=== PATIENT | female | born 1990 | race Caucasian/White ===

== ENCOUNTER 2018-01-31 08:58 | Observation (INO) | payer OTHER ==
[~2018-01-31] VITALS: Ht 165 cm; Wt 70.8 kg
[2018-01-31 09:19] VITALS: BP 110/75
== END 2018-01-31 10:45 | disposition home or self-care (01) ==
LOC: 4S 08:58
PROVIDERS: ADMIT Obstetrics & Gynecology; ATTEND Obstetrics & Gynecology
DX: O62.9 Abnormality of forces of labor, unspecified (principal); Z3A.38 38 weeks gestation of pregnancy
CPT/HCPCS: 59025; 76805

== ENCOUNTER 2018-02-08 21:18 | Inpatient (IN) | payer OTHER ==
[~2018-02-08] VITALS: Ht 165.1 cm; Wt 71.7 kg
[2018-02-08 21:52] VITALS: BP 122/77
[2018-02-08] MEDS ORDERED: RINGERS SOLUTION,LACTATED 1,000 ML IV ONE (22:07)
[2018-02-08] MEDS ORDERED: OXYTOCIN 30 UNITS/LACT RINGERS 500 ML IV ONE ×2 (22:07→23:47)
[2018-02-08] MEDS ORDERED: RINGERS SOLUTION,LACTATED 1,000 ML IV SCH (22:07)
[2018-02-08] MEDS ORDERED: LIDOCAINE HCL/PF 1% 30 ML VIAL INJ PRN (22:15)
[2018-02-08] MEDS ORDERED: CITRIC ACID/SODIUM CITRATE 30 ML SOLUTION UDCUP PO PRN (22:15)
[2018-02-08] MEDS ORDERED: METOCLOPRAMIDE HCL 5 MG/ML 2 ML VIAL IVP PRN (22:15)
[2018-02-08] MEDS ORDERED: ROPIVACAINE HCL/PF 0.2% 0 ML ED ONE (22:17)
[2018-02-08] MEDS ORDERED: LIDOCAINE HCL/PF 2% 5 ML VIAL ONE (22:17)
[2018-02-08] MEDS ORDERED: BUPIVACAINE HCL/PF 0.5% 10 ML VIAL ONE (22:20)
[2018-02-08] MEDS ORDERED: PREN1TAB80 PO (23:42)
[2018-02-08] MEDS ORDERED: FERR325T22 PO (23:43)
[2018-02-08] MEDS ORDERED: FOLI1TAB15 PO (23:43)
[2018-02-08 23:47] LABS: BASOPHILS % (AUTO) 0.8 % (0.0-2.0); EOSINOPHILS % (AUTO) 1.1 % (1.0-6.0); HEMATOCRIT 34.8 % (36-46); HEMOGLOBIN 12.1 g/dL (12.0-16.0); LYMPHOCYTES # (AUTO) 1.7 K/uL (1.0-4.8); LYMPHOCYTES % (AUTO) 18.5 % (22.0-44.0); MEAN CORPUSCULAR HEMOGLOBIN 33.2 pg (26.0-34.0); MEAN CORPUSCULAR HGB CONC 34.7 G/dL (31.0-37.0); MEAN CORPUSCULAR VOLUME 96 fL (80-100); MONOCYTES # (AUTO) 0.7 K/uL (0.1-1.0); MONOCYTES % (AUTO) 7.9 % (2.0-9.0); NEUTROPHILS # (AUTO) 6.6 K/uL (1.8-7.7); NEUTROPHILS % (AUTO) 71.7 % (40.0-70.0); PLATELET COUNT (AUTO)-OB 244 K/uL (150-450); RED BLOOD CELL COUNT(AUTO) 3.64 MIL/uL (4.00-5.20); RED CELL DISTRIBUTION WIDTH 13.8 % (11.5-14.5)
[2018-02-09] MEDS ORDERED: OxyCODONE HCL/ACETAMINOPHEN 5-325 MG TABLET PO PRN ×2
[2018-02-09] MEDS ORDERED: BENZOCAINE 20%/MENTHOL 56 GM SPRAY CANISTER TP PRN
[2018-02-09] MEDS ORDERED: GLYCERIN/WITCH HAZEL LEAF 40 PADS JAR TP PRN
[2018-02-09] MEDS ORDERED: LANOLIN 7 GM OINTMENT TP PRN
[2018-02-09] MEDS ORDERED: LIDOCAINE HCL/PF 1% 30 ML VIAL INJ PRN
[2018-02-09] MEDS: IBUPROFEN 800 MG TABLET PO PRN (00:33)
[2018-02-09 06:36] LABS: BASOPHILS % (AUTO) 0.3 % (0.0-2.0); EOSINOPHILS % (AUTO) 0.6 % (1.0-6.0); HEMATOCRIT 34.5 % (36-46); LYMPHOCYTES # (AUTO) 1.8 K/uL (1.0-4.8); LYMPHOCYTES % (AUTO) 15.3 % (22.0-44.0); MEAN CORPUSCULAR HEMOGLOBIN 33.6 pg (26.0-34.0); MEAN CORPUSCULAR HGB CONC 34.8 G/dL (31.0-37.0); MEAN CORPUSCULAR VOLUME 97 fL (80-100); MONOCYTES # (AUTO) 0.9 K/uL (0.1-1.0); MONOCYTES % (AUTO) 7.9 % (2.0-9.0); NEUTROPHILS # (AUTO) 8.9 K/uL (1.8-7.7); NEUTROPHILS % (AUTO) 75.9 % (40.0-70.0); PLATELET COUNT (AUTO)-OB 247 K/uL (150-450); RED BLOOD CELL COUNT(AUTO) 3.57 MIL/uL (4.00-5.20); RED CELL DISTRIBUTION WIDTH 14.1 % (11.5-14.5)
[2018-02-09] MEDS: MAGNESIUM HYDROXIDE SUSPENSION 30 ML UDCUP PO PRN (08:55)
[2018-02-10] MEDS: MAGNESIUM HYDROXIDE SUSPENSION 30 ML UDCUP PO PRN (08:24)
[2018-02-10] MEDS: IBUPROFEN 800 MG TABLET PO PRN (08:24)
[2018-02-10] MEDS ORDERED: IBUP-2071 PO (09:45)
[2018-02-10] MEDS ORDERED: DSS100 PO (09:46)
== END 2018-02-10 10:50 | disposition home or self-care (01) | DRG 775 ==
LOC: 4S 21:18 → OBSVTOIN 21:18
PROVIDERS: ADMIT Obstetrics & Gynecology; ATTEND Obstetrics & Gynecology
PROC: 10D07Z6 Extraction of Products of Conception, Vacuum, Via Natural or Artificial Opening (ICD-10-PCS; principal; 2018-02-08)
PROC: 0HQ9XZZ Repair Perineum Skin, External Approach (ICD-10-PCS; 2018-02-08)
PROC: 3E0R3BZ Introduction of Anesthetic Agent into Spinal Canal, Percutaneous Approach (ICD-10-PCS; 2018-02-08)
PROC: 00HU33Z Insertion of Infusion Device into Spinal Canal, Percutaneous Approach (ICD-10-PCS; 2018-02-08)
PROC: 10907ZC Drainage of Amniotic Fluid, Therapeutic from Products of Conception, Via Natural or Artificial Opening (ICD-10-PCS; 2018-02-08)
DX: O76 Abnormality in fetal heart rate and rhythm complicating labor and delivery (principal); O70.0 First degree perineal laceration during delivery; Z3A.39 39 weeks gestation of pregnancy; Z37.0 Single live birth; O66.5 Attempted application of vacuum extractor and forceps
CPT/HCPCS: 86850; 86900; 86901; J2590; J2795; J3490; J7120

== ENCOUNTER 2019-10-15 03:29 | Inpatient (IN) | payer OTHER ==
[~2019-10-15] VITALS: Ht 165.1 cm; Wt 75.3 kg
[~2019-10-15 03:29] MED LIST: DSS100 PO; FOLI1TAB15 PO; IBUP-2071 PO; PREN1TAB80 PO
[2019-10-15] MEDS ORDERED: OXYTOCIN 20 UNITS/LACT RINGERS 1,000 ML IV ONE (03:48)
[2019-10-15] MEDS ORDERED: OXYTOCIN 30 UNITS/LACT RINGERS 500 ML IV ONE (03:50)
[2019-10-15] MEDS ORDERED: CITRIC ACID/SODIUM CITRATE 30 ML SOLUTION UDCUP PO PRN (04:00)
[2019-10-15] MEDS ORDERED: LIDOCAINE/PF 1% 30 ML VIAL INJ PRN (04:00)
[2019-10-15] MEDS ORDERED: TERBUTALINE SULFATE 1 MG/ML VIAL SQ PRN (04:00)
[2019-10-15] MEDS ORDERED: METOCLOPRAMIDE HCL 5 MG/ML 2 ML VIAL IVP PRN (04:00)
[2019-10-15] MEDS ORDERED: FentaNYL CITRATE-PF 100 MCG/2 ML VIAL IVP PRN (04:00)
[2019-10-15 04:11] VITALS: BP 116/72
[2019-10-15] MEDS: RINGERS SOLUTION,LACTATED 1,000 ML IV SCH ×3 (04:41→10:35)
[2019-10-15 04:48] LABS: BASOPHILS % (AUTO) 0.4 % (0.0-2.0); EOSINOPHILS % (AUTO) 1.3 % (1.0-6.0); HEMATOCRIT 38.2 % (36-46); HEMOGLOBIN 12.9 g/dL (12.0-16.0); LYMPHOCYTES # (AUTO) 1.9 K/uL (1.0-4.8); LYMPHOCYTES % (AUTO) 21.7 % (22.0-44.0); MEAN CORPUSCULAR HEMOGLOBIN 32.6 pg (26.0-34.0); MEAN CORPUSCULAR HGB CONC 33.8 G/dL (31.0-37.0); MEAN CORPUSCULAR VOLUME 97 fL (80-100); MONOCYTES # (AUTO) 0.6 K/uL (0.1-1.0); MONOCYTES % (AUTO) 6.9 % (2.0-9.0); NEUTROPHILS % (AUTO) 69.7 % (40.0-70.0); PLATELET COUNT (AUTO) 209 K/uL (150-450); RED BLOOD CELL COUNT(AUTO) 3.95 MIL/uL (4.00-5.20)
[2019-10-15] MEDS ORDERED: INFLUENZA VIRUS VACCINE QVS 2019-20 (3YR+)/PF 60 MCG/0.5 ML SYRINGE IM ONE (05:00)
[2019-10-15] MEDS ORDERED: ROPIVACAINE HCL/PF 0.2% 100 ML ED ONE (05:03)
[2019-10-15] MEDS ORDERED: CARBOPROST TROMETHAMINE 250 MCG/ML AMP IM PRN (08:30)
[2019-10-15] MEDS ORDERED: METHYLERGONOVINE MALEATE 0.2 MG/ML VIAL IM PRN (08:30)
[2019-10-15] MEDS ORDERED: ROPIVACAINE HCL/PF 0.2% 100 ML ED PRN (09:12)
[2019-10-15] MEDS ORDERED: DiphenhydrAMINE HCL 50 MG/ML VIAL IVP PRN (09:15)
[2019-10-15] MEDS ORDERED: ONDANSETRON HCL 4 MG/2 ML VIAL IVP PRN (09:15)
[2019-10-15] MEDS ORDERED: NALBUPHINE HCL 10 MG/ML VIAL IVP PRN (09:15)
[2019-10-15] MEDS ORDERED: OXYTOCIN 30 UNITS/LACT RINGERS 500 ML IV PRN (10:09)
[2019-10-15] MEDS ORDERED: RINGERS SOLUTION,LACTATED 1,000 ML IV ONE (12:10)
[2019-10-15] MEDS ORDERED: OxyCODONE HCL/ACETAMINOPHEN 5-325 MG TABLET PO PRN ×2 (12:15)
[2019-10-15] MEDS ORDERED: MEASLES/MUMPS/RUBELLA VACCINE, LIVE 0.5 ML/VIAL SQ ONE (12:15)
[2019-10-15] MEDS ORDERED: LANOLIN 7 GM OINTMENT TP PRN (12:15)
[2019-10-15] MEDS: GLYCERIN/WITCH HAZEL LEAF 40 PADS JAR TP PRN (12:54)
[2019-10-15] MEDS: BENZOCAINE 20%/MENTHOL 56 GM SPRAY CANISTER TP PRN (12:54)
[2019-10-15] MEDS: IBUPROFEN 600 MG TABLET PO PRN ×2 (13:23→20:13)
[2019-10-15] MEDS ORDERED: MINERAL OIL 90 ML BOTTLE TP ONE (15:00)
[2019-10-15] MEDS: MAGNESIUM HYDROXIDE SUSPENSION 30 ML UDCUP PO SCH (20:11)
[2019-10-16] MEDS: MAGNESIUM HYDROXIDE SUSPENSION 30 ML UDCUP PO SCH (09:31)
[2019-10-16] MEDS: GLYCERIN/WITCH HAZEL LEAF 40 PADS JAR TP PRN (09:33)
[2019-10-16] MEDS: BENZOCAINE 20%/MENTHOL 56 GM SPRAY CANISTER TP PRN (09:34)
[2019-10-16] MEDS: IBUPROFEN 600 MG TABLET PO PRN (12:19)
== END 2019-10-16 13:20 | disposition home or self-care (01) | DRG 807 ==
LOC: 4S 03:29 → PREOBSVTOIN 11-08 03:53
PROVIDERS: ADMIT Obstetrics & Gynecology; ATTEND Obstetrics & Gynecology
PROC: 10E0XZZ Delivery of Products of Conception, External Approach (ICD-10-PCS; principal; 2019-10-15)
PROC: 10907ZC Drainage of Amniotic Fluid, Therapeutic from Products of Conception, Via Natural or Artificial Opening (ICD-10-PCS; 2019-10-15)
PROC: 3E0R3BZ Introduction of Anesthetic Agent into Spinal Canal, Percutaneous Approach (ICD-10-PCS; 2019-10-15)
PROC: 00HU33Z Insertion of Infusion Device into Spinal Canal, Percutaneous Approach (ICD-10-PCS; 2019-10-15)
DX: O80 Encounter for full-term uncomplicated delivery (principal); Z37.0 Single live birth; Z3A.40 40 weeks gestation of pregnancy
CPT/HCPCS: 86850; 86900; 86901; 90686; J2590; J2795; J7120